=== PATIENT | female | born 1990 | race Caucasian/White ===

== ENCOUNTER → 2017-01-26 | Outpatient (CLI) | payer MEDICAID ==
[~2017-01-26] MED LIST: ATARAX50 MG PO; PROZAC 20MG20 MG PO; YAZ 28 3 MG-0.01 TAB PO; antibiotic
[2017-01-26 16:31] LABS: BASO % 0.2 % (0.0-2.0); EOS # 0.1 (0.0-0.7); EOS % 1.8 % (0-4.0); GRAN % 59.4 % (42.2-75.2); HEMATOCRIT 40.4 % (37.0-47.0); HEMOGLOBIN 13.9 g/dl (12.5-16.0); LYMPH # 1.7 (1.2-3.4); LYMPH % 33.8 % (20.0-51.0); MEAN CELL VOLUME 90 fl (80.0-100.0); MEAN CORPUSCULAR HEMOGLOBIN 31 pg (27.0-31.0); MEAN CORPUSCULAR HGB CONC 34 g/dl (33.0-37.0); MEAN PLATELET VOLUME 8.5 fl (7.4-10.4); MONO # 0.2 (0.1-0.6); MONO % 4.4 % (1.7-9.3); PLATELET COUNT 201 K/mm3 (130-400); RED BLOOD COUNT 4.48 M/mm3 (4.10-5.30); REDCELL DISTRIBUTION WIDTH-CV 11.6 % (11.5-14.5)
[2017-01-26 16:39] LABS: ADJUSTED CALCIUM 9.2 mg/dL (8.4-10.2); ALBUMIN 4.3 gm/dL (3.5-5.0); BILIRUBIN,TOTAL 0.7 mg/dL (0.0-1.0); CALCIUM 9.4 mg/dL (8.4-10.2); CREATININE, serum 0.58 mg/dL (0.52-1.25); TOTAL PROTEIN 7.4 gm/dL (6.4-8.2)
[2017-01-26 17:09] LABS: THYROID STIMULATING HORMONE 3.06 uIU/mL (0.465-4.680)
== END ==
LOC: COL.LAB 16:03
DX: N91.2 Amenorrhea, unspecified (principal); R55 Syncope and collapse

== ENCOUNTER 2017-10-31 22:34 | Emergency (ER) | payer MEDICAID ==
[~2017-10-31] VITALS: Ht 170.2 cm; Wt 68.2 kg
[2017-10-31 22:44] VITALS: TEMP 98.5
[2017-10-31 23:19] LABS: COLLECTION METHOD CLEAN CATCH
[2017-10-31 23:22] LABS: BASO % 0.3 % (0.0-2.0); EOS # 0.1 (0.0-0.7); EOS % 1.6 % (0-4.0); GRAN # 3.9 (1.4-6.5); GRAN % 64.2 % (42.2-75.2); HEMATOCRIT 37.4 % (37.0-47.0); HEMOGLOBIN 13.2 g/dl (12.5-16.0); LYMPH # 1.7 (1.2-3.4); LYMPH % 28.7 % (20.0-51.0); MEAN CELL VOLUME 87 fl (80.0-100.0); MEAN CORPUSCULAR HEMOGLOBIN 31 pg (27.0-31.0); MEAN CORPUSCULAR HGB CONC 35 g/dl (33.0-37.0); MEAN PLATELET VOLUME 8.3 fl (7.4-10.4); MONO # 0.3 (0.1-0.6); MONO % 4.9 % (1.7-9.3); PLATELET COUNT 202 K/mm3 (130-400); RED BLOOD COUNT 4.28 M/mm3 (4.10-5.30); REDCELL DISTRIBUTION WIDTH-CV 11.9 % (11.5-14.5)
[2017-10-31 23:26] LABS: MUCOUS Present /lpf; PH 7 (5-8); SQUAMOUS EPITHELIAL 0-2 /hpf; URINE APPEARANCE Clear; URINE BACTERIA None Seen /hpf; URINE BILIRUBIN Negative (NEGATIVE); URINE BLOOD Negative (NEGATIVE); URINE COLOR Yellow; URINE GLUCOSE Negative (NEGATIVE); URINE KETONE Negative (NEGATIVE); URINE LEUKOCYTE ESTERASE Negative (NEGATIVE); URINE NITRATE Negative (NEGATIVE); URINE PROTEIN(semi-quant) Negative (NEGATIVE); URINE RBC None Seen /hpf; URINE UROBILINOGEN Negative (NEGATIVE)
[2017-10-31 23:32] LABS: ALBUMIN 3.8 gm/dL (3.5-5.0); BILIRUBIN,TOTAL 0.4 mg/dL (0.0-1.0); CALCIUM 9.1 mg/dL (8.4-10.2); CREATININE, serum 0.66 mg/dL (0.52-1.25); POTASSIUM 3.4 mmol/L (3.4-5.0); TOTAL PROTEIN 7.4 gm/dL (6.4-8.2)
[2017-11-01 01:13] VITALS: BP 99/72; PULSE 73
== END 2017-11-01 01:13 | disposition home or self-care (01) ==
LOC: COL.ER 22:34
PROVIDERS: Emergency Medicine
DX: N83.299 Other ovarian cyst, unspecified side (principal); Z90.89 Acquired absence of other organs
CPT/HCPCS: J2765; J3010; J7030; Q9967

== ENCOUNTER → 2017-11-25 | Outpatient (CLI) | payer MEDICAID ==
[2017-11-25 12:05] LABS: COLLECTION METHOD CLEAN CATCH
[2017-11-25 12:11] LABS: MUCOUS Present /lpf; PH 5 (5-8); SQUAMOUS EPITHELIAL 0-2 /hpf; URINE APPEARANCE Clear; URINE BACTERIA None Seen /hpf; URINE BILIRUBIN Negative (NEGATIVE); URINE BLOOD Negative (NEGATIVE); URINE COLOR Yellow; URINE GLUCOSE Negative (NEGATIVE); URINE KETONE Negative (NEGATIVE); URINE LEUKOCYTE ESTERASE Negative (NEGATIVE); URINE NITRATE Negative (NEGATIVE); URINE PROTEIN(semi-quant) Negative (NEGATIVE); URINE RBC 0-2 /hpf; URINE UROBILINOGEN Negative (NEGATIVE); URINE WBC 0-2 /hpf
[2017-11-25 12:16] LABS: HEMATOCRIT 39.4 % (37.0-47.0); HEMOGLOBIN 13.9 g/dl (12.5-16.0); MEAN CELL VOLUME 89 fl (80.0-100.0); MEAN CORPUSCULAR HEMOGLOBIN 32 pg (27.0-31.0); MEAN CORPUSCULAR HGB CONC 35 g/dl (33.0-37.0); MEAN PLATELET VOLUME 8.4 fl (7.4-10.4); PLATELET COUNT 203 K/mm3 (130-400); RED BLOOD COUNT 4.41 M/mm3 (4.10-5.30); REDCELL DISTRIBUTION WIDTH-CV 11.9 % (11.5-14.5)
[2017-11-25 12:19] LABS: ALBUMIN 3.9 gm/dL (3.5-5.0); BILIRUBIN,TOTAL 0.3 mg/dL (0.0-1.0); CALCIUM 8.8 mg/dL (8.4-10.2); CREATININE, serum 0.65 mg/dL (0.52-1.25); POTASSIUM 4.2 mmol/L (3.4-5.0); TOTAL PROTEIN 7.3 gm/dL (6.4-8.2)
== END ==
LOC: COL.LAB 11:36
DX: R10.30 Lower abdominal pain, unspecified (principal); R14.0 Abdominal distension (gaseous)

== ENCOUNTER 2018-07-21 13:58 | Outpatient (CLI) | payer MEDICAID ==
[~2018-07-21] VITALS: Ht 170.2 cm; Wt 81.8 kg
[~2018-07-21 13:58] MED LIST changes: -TYLENOL COLD; -[UNRECOGNIZED DRUG - OTHER]
[2018-07-21 14:05] VITALS: BP 118/70; PULSE 86; TEMP 98.7
[2018-07-21] MEDS ORDERED: PROZAC 20MG20 MG PO (14:15)
[2018-07-21] MEDS ORDERED: TYLENOL COLD (14:17)
[2018-07-21] MEDS ORDERED: [UNRECOGNIZED DRUG - OTHER] (14:17)
[2018-07-21 15:15] LABS: COLLECTION METHOD CATHETER
[2018-07-21 15:34] LABS: MUCOUS Present /lpf; PH 6 (5-8); SQUAMOUS EPITHELIAL 0-2 /hpf; URINE APPEARANCE Hazy; URINE BACTERIA None Seen /hpf; URINE BILIRUBIN Negative (NEGATIVE); URINE BLOOD 3+ (NEGATIVE); URINE COLOR Yellow; URINE GLUCOSE Negative (NEGATIVE); URINE KETONE Negative (NEGATIVE); URINE LEUKOCYTE ESTERASE Negative (NEGATIVE); URINE NITRATE Negative (NEGATIVE); URINE PROTEIN(semi-quant) Negative (NEGATIVE); URINE RBC >50 /hpf; URINE UROBILINOGEN Negative (NEGATIVE)
--- NOTE | 2018-07-21 16:10 | NUR ---
1400- Pt arrives on unit ambulatory with complaints of cramping, VB, and decreased movement. Pt shown bathroom and gown to change. 1407- Pt into bed. EFM and TOCO on and tracing. Assessment completed. VSS. Pt states she has been feeling sick since Wednesday but today she had lower abd cramping. She had one incident of bright red bleeding while using the batroom. She states the water was pink tinged and had bright red blood noted on toilet paper. States she has been feeling the baby move but it is much less than normal. Pt denies vomiting or diahrrea. 1425- Pitcher of water given and encouraged to drink. 1505- Straight cath UA without difficulty. SVE closed, thick, high. 1546- Pt udated on MD orders and reccomendation. EFM and TOCO off. Pt up to bathroom to change into street clothes. 1610- Discharge paperwork given and explained. Questions answered. Pt ambulates off unit independently with FOB in stable condition.
== END 2018-07-21 16:10 | disposition home or self-care (01) ==
LOC: LDRO 13:58
PROVIDERS: Obstetrics & Gynecology
DX: O36.8120 Decreased fetal movements, second trimester, not applicable or unspecified (principal); O46.92 Antepartum hemorrhage, unspecified, second trimester; O26.892 Other specified pregnancy related conditions, second trimester; R25.2 Cramp and spasm; Z3A.27 27 weeks gestation of pregnancy

== ENCOUNTER → 2018-07-21 | Emergency (ER) | payer MEDICAID ==
[~2018-07-21] MED LIST changes: +TYLENOL COLD; +[UNRECOGNIZED DRUG - OTHER]
== END ==
LOC: COL.ER 13:45
DX: Z72.9 Problem related to lifestyle, unspecified (principal)

== ENCOUNTER 2018-09-26 12:11 | Outpatient (CLI) | payer MEDICAID ==
[~2018-09-26] VITALS: Ht 167.6 cm; Wt 90.9 kg
[~2018-09-26 12:11] MED LIST changes: +TYLENOL COLD; +[UNRECOGNIZED DRUG - OTHER]
--- NOTE | 2018-09-26 12:15 | NUR ---
Patient ambulatory to LR3 with significant other, changed into gown, FHR/TOCO monitors placed and explained. Patient states she had a gush of water around 1140, and has been having random contractions. No vaginal bleeding. Plan of care discussed, 1225:SVE-/-3 and amniotest inconclusive at this time. FHR reactive and assessment completed. 1243: Patient off monitor to ambulate and will recheck cervix and amnitest after ambulating.
[2018-09-26] MEDS ORDERED: TYLENOL 500MG500 MG PO (12:33)
[2018-09-26] MEDS ORDERED: BENADRYL25 M2 PO (12:34)
--- NOTE | 2018-09-26 12:40 | NUR ---
FHR tracing maternal heart rate, monitor adjusted. 1320: SVE 1/60/-3 and amniotest inconclusive. Dillon KELSEY rechecks and amniotest turns dark blue. 1330: Dr. Díaz called and notified and orders amniosure. 1340: Amniosure negative and Dr. Díaz called and notified and order for discharge given. 1406: Patient off monitor and given discharge/labor precautions instructions. Patient agrees/signs paper.
[2018-09-26 12:50] VITALS: BP 129/72; PULSE 94; TEMP 98.5
[2018-09-26 14:06] VITALS: BP 121/78; PULSE 83
== END 2018-09-26 14:20 ==
LOC: LDRO 12:11
DX: O62.9 Abnormality of forces of labor, unspecified (principal); Z3A.37 37 weeks gestation of pregnancy

== ENCOUNTER 2018-10-09 21:03 | Inpatient (IN) | payer MEDICAID ==
[2018-10-09] VITALS (19 sets, daily range): BP systolic 85–127; BP diastolic 50–75; PULSE 57–113; TEMP 98.2–98.9
[~2018-10-09] VITALS: Ht 170.2 cm; Wt 90.5 kg
[~2018-10-09 21:03] MED LIST changes: +BENADRYL25 M2 PO; +TYLENOL 500MG500 MG PO
--- NOTE | 2018-10-09 21:15 | NUR ---
G2L1. 38-6. Ambulatory to LDR 3 with significant other. Clean gown on. EFM and TOCO explained and applied. Pt unable to sit still in bed due to contraction pain. Pt states her contractions started around 1630 today and have increased intensity since then. States they are 3-5minutes apart at this time. Contractions palpate firm. Pt denies LOF and reports minimal spotting. Reports good movement. SVE 5/80/-2 blood show noted on exam glove. Pt requesting epidural at this time. Plan of care explained to pt and questions answered. 2126: updated on pts status. Admit orders received. See physican notification. [id number]: Pt intermittently sitting on edge of bed and standing up due to pain. Intermittently tracing materal heart rate due to pts position. RN remains at bedside and adjusts monitors to trace FHR. FHR remains 150s with moderate variablity. 2155: IV started and labs obtained via IV site. LR bolus infusing without difficulties. 2201: Pt assisted to EOB for epidural placement. Difficulty tracing FHR due to maternal position. Pulse ox applied and tracing. Zachary VOICE AND DATA TECHNICIAN at bedside and procedure explained. 2207: Single shot administered by Zachary VOICE AND DATA TECHNICIAN at this time. See anesthesia records. 2211: Pt assisted to wedge left position and monitors adjusted. Plan of care and safety precautions explained to pt and signifcant other. 2219: BP noted 86/50 retake BP 90/51. 2223: Ephedrine 10mgs explained and administered at this time. retake BP 106/61. LR bolus continuing to infuse. 2234: BP noted 85/51, retake BP 88/52, Ephedrine 10mgs administered at this time. 2250: Pt laid flat and enrique inserted without difficulties. Yellow/clear urine return noted. SVE 6/80/-1. Pericare provided and pt repositioned to wedge left position. 2250: FHR noted 190s-200s, LR bolus started. Will continue to monitor closely.
[2018-10-09 22:10] LABS: BASO % 0.2 % (0.0-2.0); EOS % 0.2 % (0-4.0); GRAN # 13.4 (1.4-6.5); GRAN % 80.4 % (42.2-75.2); LYMPH # 2.4 (1.2-3.4); LYMPH % 14.6 % (20.0-51.0); MEAN CELL VOLUME 83 fl (80.0-100.0); MEAN CORPUSCULAR HEMOGLOBIN 26 pg (27.0-31.0); MEAN CORPUSCULAR HGB CONC 31 g/dl (33.0-37.0); MEAN PLATELET VOLUME 9.3 fl (7.4-10.4); MONO # 0.7 (0.1-0.6); MONO % 4.1 % (1.7-9.3); PLATELET COUNT 248 K/mm3 (130-400); RED BLOOD COUNT 4.24 M/mm3 (4.10-5.30); REDCELL DISTRIBUTION WIDTH-CV 15.1 % (11.5-14.5)
[2018-10-10] VITALS (27 sets, daily range): BP systolic 99–135; BP diastolic 56–94; PULSE 69–125; TEMP 98–98.6
--- NOTE | 2018-10-10 02:35 | NUR ---
SVE remains 01/24 with bolgy bag noted. updated on pts status. See physican notification. 0251: at bedside. AROM completed at this time by , large amount of clear fluid noted. SVE complete per . 0300: Instructions on pushing with contractions explained to pt and pt begins pushing with this RN. Recurrent variables noted with contractions. Spontaneous quick return to baseline between contractions. 0330: at bedside to assess pushing. Swollen cervix noted while pushing. Pt assisted to high fowlers and laboring down till 0400 per provider. Questions answered. 0400: SVE C/+2 per . Pt beigns pushing with provider. 0406: Orders to start pitocin at 2mus per provider. Pitocin explained and pitocin started at 2mus/hr per orders. remains at bedside pushing with pt. 0410: Pt assisted into footplates for delivery. Pt continues pushing with . 0412: Spontaneous vaginal delivery of viable male infant by . Pitocin stopped. Infants nares and mouth suction by and placed on mother's chest where dried and stimulated by nursery RN. Cord clamped X2 and cut by patient. Care of infant assumed by LAURE Ordonez. 0419: Spontaneous delivery of intact placenta by . Pitocin started at 333mus/hr per protocol. Fundal message performeed by this RN. fundus firm, midline and bleeding minimal. [place]-urethral and perineal laceration repaired by . Pericare provided, pads changed and ice pack applied. Pt repositioned in bed. Plan of care and safety precautions explained to pt who verbalizes understanding. See doctor dications and anesthesia records.
--- NOTE | 2018-10-10 07:30 | NUR ---
Ambulates to the bathroom. Voids moderate amount of urine. [place]-care explained and done by patient. Ambulates to room 207 with significant other and this nurse. Denies any pain or discomfort at this time. Oriented to room.
--- NOTE | 2018-10-10 11:49 | NUR ---
Ambulates to the bathroom, tolerates well. Percocet 5/325 mg one given per request and as ordered.
--- NOTE | 2018-10-10 17:52 | NUR ---
Percocet 5/325 mg given per request and as ordered.
[2018-10-11 08:30] VITALS: BP 97/57; PULSE 68; TEMP 97.7
[2018-10-11] MEDS ORDERED: IBU600 MG PO (08:48)
--- NOTE | 2018-10-11 11:28 | NUR ---
Initial visit; Parents thanked [employer] Sergeant for offering congratulations and God's blessings for the of their son. [employer] Police Sergeant thanked family for choosing [facility].
== END 2018-10-11 15:20 | disposition home or self-care (01) | DRG 807 ==
LOC: LDRO 21:03 → LDR 21:31 → OB 21:31
PROVIDERS: ADMIT Obstetrics & Gynecology
PROC: 10E0XZZ Delivery of Products of Conception, External Approach (ICD-10-PCS; principal; 2018-10-09)
PROC: 0HQ9XZZ Repair Perineum Skin, External Approach (ICD-10-PCS; 2018-10-09)
PROC: 0UQMXZZ Repair Vulva, External Approach (ICD-10-PCS; 2018-10-09)
DX: O99.02 Anemia complicating childbirth (principal); Z37.0 Single live birth; Z3A.38 38 weeks gestation of pregnancy; O70.0 First degree perineal laceration during delivery; O71.82 Other specified trauma to perineum and vulva; O99.62 Diseases of the digestive system complicating childbirth; K21.9 Gastro-esophageal reflux disease without esophagitis; F43.10 Post-traumatic stress disorder, unspecified; O99.344 Other mental disorders complicating childbirth; O36.63X0 Maternal care for excessive fetal growth, third trimester, not applicable or unspecified
CPT/HCPCS: J2405; J2590; J2795; J7120

== ENCOUNTER 2020-08-13 23:31 | Observation (INO) | payer MEDICAID ==
[~2020-08-13] VITALS: Ht 170.2 cm; Wt 81.8 kg
[~2020-08-13 23:31] MED LIST changes: +IBU600 MG PO
--- NOTE | 2020-08-13 23:50 | NUR ---
G3L2. 28-6. Wheeled to LDR 4 with spouse. Clean gown on. EFM and TOCO explained and applied. Pt states she has having nausea/vomiting all day today and has not been able to keep anything down. Pt also reports intense lower back pain and minimal craming throughout the day but is not cramping at this time. Pt states she is pretty sure it is from not being able to keep anything down on all. day. Pt also reports a headache at this time. Pt does report severe UTI's in her last 2 pregnancies and states she thinks she has been trying to fight one off for the past 2 weeks. Denies having any blood in her urine at this time. Pt denies leaking of fluids or vaginal bleeding. Pt states she has not felt baby move much today. Reports trying to take tylenol today for pain but was not able to keep it down. Plan of care and safety precautions explained to pt. Questions answered. Call light within reach. 0015: updated on pts status. See physican notification. Pt updated on new plan of care. 0031: Pt off monitors to try and void. 0049: IV started and labs obtained via IV start. Zofran and LR administered per orders. 0100: at pts bedside to explain plan of care and assess pt. 0115: reviews FHR strip and lab work. 0130: Pt reports feeling intense lower back pain and states she thinks her cramping has returned. updated on pts status. SVE closed/thick/high. 0148: Pt off monitors to try again for UA. 0215: called and UA results reviewed. New orders received. See phyican notification. 0246: First dose of rocephin administered per orders. 0345: at nurses station and FHR strip reviewed. New orders recieved. See physican notification. 0353: Pt off monitors and ambulatory to room per order. Pt oriented to room and new plan of care. Questions answered.
[2020-08-14] VITALS (12 sets, daily range): BP systolic 94–124; BP diastolic 38–60; PULSE 74–105; TEMP 97.7–99.5
[2020-08-14] MEDS ORDERED: PROZAC40 MG PO (00:02)
[2020-08-14 01:01] LABS: HEMOGLOBIN 11.7 g/dl (12.5-16.0); MEAN CELL VOLUME 91 fl (80.0-100.0); MEAN CORPUSCULAR HEMOGLOBIN 31 pg (27.0-31.0); MEAN CORPUSCULAR HGB CONC 34 g/dl (33.0-37.0); MEAN PLATELET VOLUME 8.4 fl (7.4-10.4); PLATELET COUNT 182 K/mm3 (130-400); REDCELL DISTRIBUTION WIDTH-CV 12.3 % (11.5-14.5)
[2020-08-14 01:04] LABS: HEMATOCRIT 34.4 % (37.0-47.0)
[2020-08-14 01:11] LABS: ALBUMIN 3.5 gm/dL (3.5-5.0); CREATININE, serum 0.47 (0.52-1.25); POTASSIUM 3.4 mmol/L (3.4-5.0); TOTAL PROTEIN 6.9 gm/dL (6.4-8.2)
[2020-08-14 01:18] LABS: BAND 17 % (0-10); LYMPHOCYTE 2 % (20.0-51.0); NEUTROPHILS 78 % (42.0-75.2)
[2020-08-14 01:19] LABS: PLATELET ESTIMATE NORMAL (NORMAL)
[2020-08-14 02:00] LABS: COLLECTION METHOD CLEAN CATCH
[2020-08-14 02:06] LABS: MUCOUS Present /lpf; PH 5 (5-8); URINE APPEARANCE Cloudy; URINE BACTERIA None Seen /hpf; URINE BILIRUBIN Negative (NEGATIVE); URINE BLOOD Negative (NEGATIVE); URINE COLOR Yellow; URINE GLUCOSE Negative (NEGATIVE); URINE KETONE 2+ (NEGATIVE); URINE LEUKOCYTE ESTERASE 2+ (NEGATIVE); URINE NITRATE Negative (NEGATIVE); URINE PROTEIN(semi-quant) 2+ (NEGATIVE); URINE UROBILINOGEN >=4.0 mg/dL (NEGATIVE); URINE WBC 20-50 /hpf
--- NOTE | 2020-08-14 10:12 | NUR ---
Initial visit; Patient thanked Percussion Instrument Tuner for offering empathy and encouragement while stating she is feeling better. Percussion Instrument Tuner wished Cherry God's blessings.
[2020-08-15 03:00] VITALS: BP 97/52; PULSE 85; TEMP 97.5
[2020-08-15] MEDS ORDERED: MACROBID 1100 MG/CAP PO (08:36)
[2020-08-15 08:45] VITALS: BP 99/62; PULSE 80; TEMP 97.8
== END 2020-08-15 09:20 | disposition home or self-care (01) ==
LOC: LDRO 23:31 → LDR 08-14 00:18 → OB 08-14 05:46 → LDRO 08-14 13:20 → OB 08-14 13:21
PROVIDERS: Obstetrics & Gynecology; ADMIT Obstetrics & Gynecology
DX: O23.03 Infections of kidney in pregnancy, third trimester (principal); Z3A.29 29 weeks gestation of pregnancy; O99.613 Diseases of the digestive system complicating pregnancy, third trimester; K58.9 Irritable bowel syndrome, unspecified; O99.343 Other mental disorders complicating pregnancy, third trimester; F41.9 Anxiety disorder, unspecified; F32.9 Major depressive disorder, single episode, unspecified; K21.9 Gastro-esophageal reflux disease without esophagitis; F43.10 Post-traumatic stress disorder, unspecified; Z87.440 Personal history of urinary (tract) infections; O99.013 Anemia complicating pregnancy, third trimester
CPT/HCPCS: G0378; J0696; J2405; J7120

== ENCOUNTER 2020-10-16 18:31 | Outpatient (CLI) | payer MEDICAID ==
[~2020-10-16] VITALS: Ht 170.2 cm; Wt 81.4 kg
[~2020-10-16 18:31] MED LIST changes: +MACROBID 1100 MG/CAP PO; +PROZAC40 MG PO
--- NOTE | 2020-10-16 18:40 | NUR ---
G3L2 at 38 weeks arrives to unit with complaint of painful contractions. Pt reports contractions feel worse when she is standing up but seem to space out and feel better once patient is sitting down. Pt has had some leaking but thinks she maybe voided during a contraction. Pt reports feeling good movement and denies vaginal bleeding. Clean gown on. Pt oriented to room, bed in low and locked position, call light within reach. Admission assessment started. US and toco explained and applied. Amnitrace performed with very trace amount of blue noted on swab. SVE /-3, no return of fluid on exam and membranes felt on exam. Plan of care reviewed with patient. Peripad applied.
[2020-10-16 19:00] VITALS: BP 128/72; PULSE 88; TEMP 98
--- NOTE | 2020-10-16 19:45 | NUR ---
Pt reports feeling very small amount of leaking, nothing noted on peripad. Amnitrace negative. SVE unchanged from previous exam. Membranes felt and no return of fluid during exam. Dr. Díaz updated. Pt comfortable with discharge plan. 1954 - Discharge instructions reviewed with patient and spouse, pt verbalized understanding. Pt seen ambulating off unit with spouse.
== END 2020-10-16 19:55 | disposition home or self-care (01) ==
LOC: LDRO 18:31 → LDR 19:05 → LDRO 19:55 → LDR 19:55
DX: O62.9 Abnormality of forces of labor, unspecified (principal); Z3A.38 38 weeks gestation of pregnancy
CPT/HCPCS: OP

== ENCOUNTER 2020-10-24 22:55 | Inpatient (IN) | payer MEDICAID ==
[~2020-10-24] VITALS: Ht 170.2 cm; Wt 82.7 kg
[2020-10-24 23:30] VITALS: BP 120/79; PULSE 89; TEMP 98.7
[2020-10-25] VITALS (37 sets, daily range): BP systolic 96–130; BP diastolic 52–83; PULSE 61–102; TEMP 97.9–98.6
[2020-10-25 00:01] LABS: BASO % 0.4 % (0.0-2.0); EOS # 0.1 (0.0-0.7); EOS % 0.9 % (0-4.0); GRAN # 6.1 (1.4-6.5); GRAN % 74.1 % (42.2-75.2); HEMOGLOBIN 10.4 g/dl (12.5-16.0); LYMPH # 1.6 (1.2-3.4); MEAN CELL VOLUME 83 fl (80.0-100.0); MEAN CORPUSCULAR HEMOGLOBIN 27 pg (27.0-31.0); MEAN CORPUSCULAR HGB CONC 32 g/dl (33.0-37.0); MEAN PLATELET VOLUME 8.5 fl (7.4-10.4); MONO # 0.4 (0.1-0.6); MONO % 5.1 % (1.7-9.3); PLATELET COUNT 263 K/mm3 (130-400); RED BLOOD COUNT 3.86 M/mm3 (4.10-5.30); REDCELL DISTRIBUTION WIDTH-CV 13.9 % (11.5-14.5)
[2020-10-25 00:08] LABS: HEMATOCRIT 32.2 % (37.0-47.0)
--- NOTE | 2020-10-25 04:57 | NUR ---
0445- Puneet MARTÍNEZ CRNA IN ROOM FOR EPIDURAL PLACEMENT, PT SITTING UP AT BEDSIDE. 0450- SINGLE SHOT PLACED BY CRYSTAL DE LEÓN, PT TOLERATED WELL. 0457- PT REPOSITIONED INTO HIGH FOWLERS.
--- NOTE | 2020-10-25 05:45 | NUR ---
0507- BP OF 80/52, PT STATES SHE STATES SHE IS FEELING SLIGHTLY LIGHTHEADED, THIS NURSE OUT OF ROOM TO GET EPHEDRINE. UPON ENTERING ROOM PT'S EYES CLOSED AND SHE STATES "I'M ABOUT TO BLACKOUT." NEW BP OF 100/58. 0509- EPHEDRINE 10MG GIVEN IV. 0510- NEW BP OF 108/59 0511- NEW BP OF 89/56, EPHEDRINE 10MG IV. LR BOLUS STARTED. 0513- Puneet MARTÍNEZ CRNA NOTIFIED THAT PT CONTINUES TO HAVE SYMPTOMS OF HYPOGLYCEMIA. INSTRUCTS TO GIVE AN ADDITIONAL 15MG DOSE OF EPHEDRINE AT THIS TIME AND TURN OFF EPIDURAL PUMP. 0516- PUMP OFF, 15MG EPHEDRINE IV GIVEN, BOLUS CONTINUES. 0518- NEW BP OF 146/77, PT STATES SHE IS FEELING BETTER. 0521- Puneet MARTÍNEZ CRNA IN ROOM TO EVALUATE PT. EPIDURAL DOSE DECREASED BY Puneet MARTÍNEZ CRNA AND RESTARTED.
--- NOTE | 2020-10-25 08:44 | NUR ---
0815- Dr Díaz at [facility], SVE 8/100/0, forebag AROM by MD, clear, odorless fluid noted. 9-10/100/0 after AROM. Pt assisted to LL with Right leg in stirrup. Dr Díaz remains on unit. RN remains at bedside with Pt. 0830- Dr Díaz notified that Pt feeling intense pressre, Request MD at bedside. Antunez removed without difficulty. 0840- Dr Díaz, Margarita Coto, nursery RN, and Juju Patel, RN at bedside. Pt and room prepped for delivery. Pt pushes well with one contraction. 0844- of viable female infant. Tended to by nursery RN. Pitocin off. 0849- Spontaneous delivery of placenta. Pitocin restarted at 333ml/hr. Fundus massaged to firm by . Bleeding moderate with small clots. Perineum intact. 0855- Pericare completed, ice pack. Bleeding moderate, no clots, fundus firm. Dr Díaz evaluates, order to Methergine PRN if needed. Pt comfortable with infant skin-2-skin.
--- NOTE | 2020-10-25 10:00 | NUR ---
Pt states she feels large amount of fluid leaking from vagina. This RN visualizes clear urine on chux pad and coming out of urethra. Pericare completed, chux pads changed. Pt reassured this is normal. Fundus firm, scant bleeding noted.
--- NOTE | 2020-10-25 10:50 | NUR ---
1050- Pt verbalizes needing to void. Pt assisted to standing at side of bed. Pt verbalizes feeling light-headed, Pt encouraged to sit on side of bed. at bedside, this RN to grab wheelchair. Pt states still not feeling well. Pt assisted back to bed, Fundus firm, bleeding WBL. Pt encouraged to rest and will reevaluate soon. Call light within reach.
--- NOTE | 2020-10-25 11:15 | NUR ---
1115- Pt assisted to standing at side of bed. Pt denies light-headedness. Pt ambulates to bathroom independently with standby assist. Voids well, without difficulty. Pericare completed and explained. Peripad and underwear on. Clean gown provided. Pt ambulates to room well. Oriented to room.
[2020-10-26 05:15] VITALS: BP 109/69; PULSE 68; TEMP 98.3
[2020-10-26 08:05] VITALS: BP 108/63; PULSE 66; TEMP 97.7
[2020-10-26] MEDS ORDERED: IBU600 MG PO (09:28)
== END 2020-10-26 11:35 | disposition home or self-care (01) | DRG 807 ==
LOC: LDRO 22:55 → OB 23:26 → LDR 23:26 → OB 10-25 11:30
PROVIDERS: Student in an Organized Health Care Education/Training Program; ADMIT Obstetrics & Gynecology
PROC: 10E0XZZ Delivery of Products of Conception, External Approach (ICD-10-PCS; principal; 2020-10-24)
DX: O99.02 Anemia complicating childbirth (principal); Z37.0 Single live birth; D64.9 Anemia, unspecified; O99.344 Other mental disorders complicating childbirth; F41.9 Anxiety disorder, unspecified; F43.10 Post-traumatic stress disorder, unspecified; O99.62 Diseases of the digestive system complicating childbirth; K21.9 Gastro-esophageal reflux disease without esophagitis; K58.9 Irritable bowel syndrome, unspecified; O70.0 First degree perineal laceration during delivery; Z3A.39 39 weeks gestation of pregnancy
CPT/HCPCS: J2540; J2590; J7120